=== PATIENT | male | born 1995 | race Caucasian/White ===

== ENCOUNTER 2018-06-03 12:01 | Emergency (ER) | payer OTHER ==
--- NOTE | 2018-06-03 13:09 | EDPHY ---
H & P Time Seen by Provider: 06/03/18 12:20 HPI/ROS: CHIEF COMPLAINT: Left 5th finger laceration HISTORY OF PRESENT ILLNESS: 22-year-old [id number] male with up-to- date tetanus was cutting a bagel this morning sustained accidental laceration was left 5th digit palmar aspect proximal phalanx. He is unable to flex at the DIP joint. Denies paresthesia. PHYSICAL EXAM (Prior to examination, patient consented to physical exam, hands were washed and my usual and customary physical exam procedures followed) 1) GENERAL: Well-developed, well-nourished, alert and oriented. Appears to be in no acute distress. 2) HEAD: Normocephalic 3) HEENT: sclera anicteric 4) LUNGS: Breathing comfortably. 5) SKIN: Left pinky finger, palmar aspect, PIP joint transverse 1.5 cm well delineated laceration. 6) MUSCULOSKELETAL: Laceration to left 5th digit. FDP dysfunction noted 7) NEUROLOGIC: Two-point discrimination intact distally Smoking Status: Current some day smoker Constitutional: Initial Vital Signs Temperature (C) 36.9 C 06/03/18 12:09 Heart Rate 60 06/03/18 12:09 Respiratory Rate 16 06/03/18 12:09 Blood Pressure 110/64 06/03/18 12:09 O2 Sat (%) 99 06/03/18 12:09 O2 Delivery Mode Room Air Allergies/Adverse Reactions: No Known Allergies Allergy (Unverified 06/03/18 12:08) Home Medications: Medication Instructions Recorded Adderall 10 MG (*) 06/03/18 Advil 06/03/18 Cephalexin [Keflex] 500 mg PO TID 5 Days cap 06/03/18 MDM/Departure - MDM Imaging Results: Imaging Impressions Finger X-Ray 06/03/18 13:10 Impression: No foreign body. Images reviewed myself Procedures: Procedure: Laceration repair. I explained the indications, risks and benefits for both laceration repair and anesthetic administration. Verbal consent was obtained from the patient. The laceration on the left 5th digit was anesthetized using 0.5% bupivicaine without epinephrine digital nerve block. After anesthetic administered the patient was observed for a period of time and had no apparent adverse effects. The wound was cleaned, prepped, draped in normal sterile fashion and explored to its base. No foreign body seen, no foreign bodies palpated. The skin edges were reapproximated with 4 simple interrupted 5 O Ethilon suture The wound repair was simple. The procedure was performed by myself. Patient has been informed that scarring will occur, although efforts have been made to minimize this. Procedure: Splint Aluminum finger splint was applied by ER traffic signal technician. After application of the splint I returned and re-examined the patient. The splint was adequately immobilizing the joint and distal to the splint the patient's circulation and sensation were intact. Patient shows no signs of compartment syndrome. Was given orthopedic precautions. Medications Given: Discontinued Medications Cephalexin HCl (Keflex) 500 mg PO EDNOW ONE PRN Reason: Protocol Stop: 06/03/18 13:11 Last Admin: 06/03/18 13:32 Dose: 500 mg ED Course/Re-evaluation: 1:21 p.m.: Phone consultation Dr. Nirmal Mae who agrees with plan of skin closure, antibiotics, splint, follow up in office. Today is Saturday. Patient will follow up in the office later this week. - Depart Disposition: Home, Routine, Self-Care Clinical Impression: Finger laceration involving tendon Condition: Good Instructions: Care For Your Stitches (ED), Laceration (ED) Additional Instructions: Return to the ER if you develop redness, swelling, discharge, warmth to the wound, red streaks going up your arm, or any other symptoms that concern you. Prescriptions: Cephalexin [Keflex] 500 mg PO TID 5 Days cap Referrals: Nirmal Mae MD [Medical Doctor] - 1-2 days without fail (You may followup with Dr Mae or Dr Hare in the same office)
[2018-06-03] MEDS ORDERED: CEPHALEXIN 500 MG CAP PO ONE (13:10)
[2018-06-03 14:06] VITALS: BP 132/59
== END 2018-06-03 14:06 | disposition home or self-care (01) ==
PROC: 0HQGXZZ Repair Left Hand Skin, External Approach (ICD-10-PCS; principal; 2018-06-03)
DX: S61.217A Laceration without foreign body of left little finger without damage to nail, initial encounter (principal); W26.0XXA Contact with knife, initial encounter
CPT/HCPCS: L3925